=== PATIENT | male | born 1955 | race Caucasian/White ===

== ENCOUNTER 2024-07-30 09:58 | Day surgery (SDC) | payer OTHER ==
[~2024-07-30 09:58] MED LIST: CLIN300 PO; ELIQUIS5 M2 PO; TAMS.4ER PO
[2024-07-30] MEDS ORDERED: Ertapenem Sodium 1,000 MG in NS 50 ML IV SCH (10:20)
[2024-07-30 14:17] VITALS: BP 130/82
[2024-07-30] MEDS ORDERED: ERTAPENEM1 G6 IV (14:27)
[2024-07-30] MEDS ORDERED: XARELTO20 MG PO (14:28)
[2024-07-30] MEDS ORDERED: Nicotine Gum4 MG BC (14:28)
[2024-07-30] MEDS ORDERED: ALBU90OI INH (14:29)
[2024-07-30] MEDS ORDERED: Vitamin D2000 UNIT PO (14:29)
[2024-07-30] MEDS ORDERED: DULERA 100 MCG/13 GM INH (14:31)
== END 2024-07-30 14:54 | disposition home or self-care (01) ==
LOC: ATC 09:58
DX: N39.0 Urinary tract infection, site not specified (principal); I10 Essential (primary) hypertension; E78.00 Pure hypercholesterolemia, unspecified; F17.290 Nicotine dependence, other tobacco product, uncomplicated; Z87.442 Personal history of urinary calculi; Z79.01 Long term (current) use of anticoagulants; Z79.899 Other long term (current) drug therapy; Z91.030 Bee allergy status
CPT/HCPCS: 96365; C1751; J1335

== ENCOUNTER 2024-07-31 01:24 | Day surgery (SDC) | payer OTHER ==
[~2024-07-31 01:24] MED LIST changes: +ALBU90OI INH; +DULERA 100 MCG/13 GM INH; +ERTAPENEM1 G6 IV; +Ertapenem Sodium 1,000 MG in NS 50 ML IV SCH; +Nicotine Gum4 MG BC; +Vitamin D2000 UNIT PO; +XARELTO20 MG PO
[2024-07-31 14:32] VITALS: BP 146/92
[2024-08-01] MEDS ORDERED: ATEN50 PO (14:35)
== END 2024-07-31 14:52 | disposition home or self-care (01) ==
LOC: ATC 01:24
DX: N39.0 Urinary tract infection, site not specified (principal); I10 Essential (primary) hypertension; E78.5 Hyperlipidemia, unspecified; Z87.891 Personal history of nicotine dependence; Z79.01 Long term (current) use of anticoagulants; Z79.899 Other long term (current) drug therapy
CPT/HCPCS: 96365; J1335

== ENCOUNTER 2024-08-01 01:15 | Day surgery (SDC) | payer OTHER ==
[2024-08-01] MEDS ORDERED: ATEN50 PO (14:35)
[2024-08-01 14:37] VITALS: BP 157/91
== END 2024-08-01 14:53 | disposition home or self-care (01) ==
LOC: ATC 01:15
DX: N39.0 Urinary tract infection, site not specified (principal); I10 Essential (primary) hypertension; E78.5 Hyperlipidemia, unspecified; Z87.891 Personal history of nicotine dependence; Z79.01 Long term (current) use of anticoagulants; Z79.899 Other long term (current) drug therapy
CPT/HCPCS: 96365; J1335

== ENCOUNTER 2024-08-02 14:10 | Day surgery (SDC) | payer OTHER ==
[~2024-08-02 14:10] MED LIST changes: +ATEN50 PO
[2024-08-02 14:31] VITALS: BP 124/78
== END 2024-08-02 14:49 | disposition home or self-care (01) ==
LOC: ATC 14:10
DX: N39.0 Urinary tract infection, site not specified (principal); E78.00 Pure hypercholesterolemia, unspecified; I10 Essential (primary) hypertension; Z79.899 Other long term (current) drug therapy; Z91.030 Bee allergy status; Z87.891 Personal history of nicotine dependence
CPT/HCPCS: 96365; J1335

== ENCOUNTER 2024-08-03 03:07 | Day surgery (SDC) | payer OTHER ==
[2024-08-03 14:23] VITALS: BP 113/79
== END 2024-08-03 14:40 | disposition home or self-care (01) ==
LOC: ATC 03:07
DX: N39.0 Urinary tract infection, site not specified (principal); I10 Essential (primary) hypertension; E78.5 Hyperlipidemia, unspecified; Z87.891 Personal history of nicotine dependence; Z79.01 Long term (current) use of anticoagulants; Z79.899 Other long term (current) drug therapy
CPT/HCPCS: 96365; J1335

== ENCOUNTER 2024-08-04 03:45 | Day surgery (SDC) | payer OTHER ==
[2024-08-04 14:31] VITALS: BP 119/78
== END 2024-08-04 14:47 | disposition home or self-care (01) ==
LOC: ATC 03:45
DX: N39.0 Urinary tract infection, site not specified (principal); E78.00 Pure hypercholesterolemia, unspecified; I10 Essential (primary) hypertension; Z79.899 Other long term (current) drug therapy; Z91.030 Bee allergy status; Z87.891 Personal history of nicotine dependence
CPT/HCPCS: 96365; J1335

== ENCOUNTER 2024-08-05 14:30 | Day surgery (SDC) | payer OTHER ==
[2024-08-05 14:40] VITALS: BP 126/86
== END 2024-08-05 14:55 | disposition home or self-care (01) ==
LOC: ATC 14:30
DX: N39.0 Urinary tract infection, site not specified (principal); E78.00 Pure hypercholesterolemia, unspecified; I10 Essential (primary) hypertension; Z79.899 Other long term (current) drug therapy
CPT/HCPCS: 96365; J1335

== ENCOUNTER 2024-08-06 00:14 | Day surgery (SDC) | payer OTHER ==
[~2024-08-06 00:14] MED LIST changes: -Ertapenem Sodium 1,000 MG in NS 50 ML IV SCH
[2024-08-06] MEDS ORDERED: Ertapenem Sodium 1,000 MG in NS 50 ML IV SCH (01:00)
[2024-08-06 13:54] VITALS: BP 123/80
== END 2024-08-06 14:21 | disposition home or self-care (01) ==
LOC: ATC 00:14
DX: N39.0 Urinary tract infection, site not specified (principal); E78.00 Pure hypercholesterolemia, unspecified; I10 Essential (primary) hypertension; Z79.899 Other long term (current) drug therapy
CPT/HCPCS: 96365; J1335

== ENCOUNTER 2024-08-07 06:44 | Day surgery (SDC) | payer OTHER ==
[2024-08-06 13:45] VITALS: BP 123/80
[~2024-08-07 06:44] MED LIST changes: +Ertapenem Sodium 1,000 MG in NS 50 ML IV SCH
[2024-08-07 13:33] VITALS: BP 136/78
== END 2024-08-07 13:53 | disposition home or self-care (01) ==
LOC: ATC 06:44
DX: N39.0 Urinary tract infection, site not specified (principal); N20.0 Calculus of kidney; I10 Essential (primary) hypertension; E78.00 Pure hypercholesterolemia, unspecified; F17.290 Nicotine dependence, other tobacco product, uncomplicated; Z79.01 Long term (current) use of anticoagulants; Z79.899 Other long term (current) drug therapy; Z91.030 Bee allergy status
CPT/HCPCS: 96365; J1335

== ENCOUNTER 2024-08-08 13:20 | Day surgery (SDC) | payer OTHER ==
[2024-08-08 13:24] VITALS: BP 120/80
== END 2024-08-08 13:43 | disposition home or self-care (01) ==
LOC: ATC 13:20
DX: N39.0 Urinary tract infection, site not specified (principal); I10 Essential (primary) hypertension; E78.5 Hyperlipidemia, unspecified; Z87.891 Personal history of nicotine dependence; Z79.01 Long term (current) use of anticoagulants; Z79.899 Other long term (current) drug therapy
CPT/HCPCS: 96365; J1335

== ENCOUNTER 2024-08-09 13:27 | Day surgery (SDC) | payer OTHER ==
[2024-08-09 13:50] VITALS: BP 125/78
== END 2024-08-09 14:11 | disposition home or self-care (01) ==
LOC: ATC 13:27
DX: N39.0 Urinary tract infection, site not specified (principal); I10 Essential (primary) hypertension; E78.5 Hyperlipidemia, unspecified; Z87.891 Personal history of nicotine dependence; Z79.01 Long term (current) use of anticoagulants; Z79.899 Other long term (current) drug therapy
CPT/HCPCS: 96365; J1335

== ENCOUNTER 2024-08-10 03:51 | Day surgery (SDC) | payer OTHER ==
[2024-08-10 13:23] VITALS: BP 127/82
== END 2024-08-10 13:42 | disposition home or self-care (01) ==
LOC: ATC 03:51
DX: N39.0 Urinary tract infection, site not specified (principal); E78.5 Hyperlipidemia, unspecified; E78.00 Pure hypercholesterolemia, unspecified; I10 Essential (primary) hypertension; Z79.899 Other long term (current) drug therapy; Z91.030 Bee allergy status
CPT/HCPCS: 96365; J1335

== ENCOUNTER 2024-08-11 01:06 | Day surgery (SDC) | payer OTHER ==
[2024-08-11 13:38] VITALS: BP 110/77
== END 2024-08-11 13:58 | disposition home or self-care (01) ==
LOC: ATC 01:06
DX: N39.0 Urinary tract infection, site not specified (principal); I10 Essential (primary) hypertension; E78.00 Pure hypercholesterolemia, unspecified; F17.290 Nicotine dependence, other tobacco product, uncomplicated; Z87.442 Personal history of urinary calculi; Z79.01 Long term (current) use of anticoagulants; Z79.899 Other long term (current) drug therapy; Z91.030 Bee allergy status
CPT/HCPCS: 96365; J1335

== ENCOUNTER 2024-08-12 05:26 | Day surgery (SDC) | payer OTHER ==
[2024-08-12 13:35] VITALS: BP 146/80
== END 2024-08-12 13:54 | disposition home or self-care (01) ==
LOC: ATC 05:26
DX: N39.0 Urinary tract infection, site not specified (principal); I10 Essential (primary) hypertension; E78.00 Pure hypercholesterolemia, unspecified; Z79.01 Long term (current) use of anticoagulants; Z79.899 Other long term (current) drug therapy; Z87.891 Personal history of nicotine dependence
CPT/HCPCS: 96365; J1335

== ENCOUNTER 2025-04-18 22:13 | Emergency (ER) | payer OTHER ==
[~2025-04-18] VITALS: Ht 182.9 cm; Wt 83.9 kg
[~2025-04-18 22:13] MED LIST changes: -Ertapenem Sodium 1,000 MG in NS 50 ML IV SCH
[2025-04-18 23:01] LABS: BASOPHILS ABSOLUTE AUTO 0.05 K/mm3 (0.00-0.23); BASOPHILS PERCENT AUTO 1 % (0-2); EOSINOPHILS ABSOLUTE AUTO 0.07 K/mm3 (0.00-0.68); EOSINOPHILS PERCENT AUTO 1 % (0-6); Hematocrit 44.8 % (37.0-53.0); Hemoglobin 15.0 g/dL (13.5-17.5); IMMATURE GRAN ABSOLUTE AUTO 0.04 K/mm3 (0.00-0.10); IMMATURE GRAN PERCENT AUTO 0 % (0-1); LYMPHOCYTES ABSOLUTE AUTO 1.02 K/mm3 (0.84-5.20); LYMPHOCYTES PERCENT AUTO 10 % (21-46); MONOCYTES ABSOLUTE AUTO 1.20 K/mm3 (0.16-1.47); MONOCYTES PERCENT AUTO 12 % (4-13); Mean Corpuscular HGB Conc 33.5 g/dL (31.5-36.5); Mean Corpuscular Volume 92 fL (80-100); NEUTROPHILS ABSOLUTE AUTO 7.70 K/mm3 (1.96-9.15); NEUTROPHILS PERCENT AUTO 76 % (41-73); NRBC ABSOLUTE 0.00 K/mm3 (0.00-0.02); NRBC Auto 0.0 /100 WBC (0.0-0.2); Platelet Count 167 K/mm3 (150-400); RDW Coefficient Variation 12.2 % (11.7-14.2); RDW Standard Deviation 41.8 fL (35.1-46.3)
[2025-04-18 23:28] LABS: Alanine Aminotransfer (ALT/SGP 27.0 U/L (12-78); Albumin, Blood 3.8 g/dL (3.4-5.0); Albumin/Globulin Ratio 1.1 (0.8-1.8); Anion Gap 9.0 mmol/L (3-11); Aspartate Aminotrans (AST/SGOT 17.0 U/L (12-37); Bilirubin, Total 1.9 mg/dL (0.1-1.0); Blood Urea Nitrogen 17.0 mg/dL (8-24); CO2, Blood 27.0 mmol/L (21-32); Calcium, Blood 8.6 mg/dL (8.5-10.1); Chloride, Blood 99.0 mmol/L (98-108); Creatinine, Blood 1.21 mg/dL (0.60-1.20); Globulin, Blood 3.4 g/dL (2.2-4.0); Glucose, Blood 108.0 mg/dL (70-99); Potassium, Blood 4.1 mmol/L (3.5-5.5); Sodium, Blood 131.0 mmol/L (136-145); Total Protein, Blood 7.2 g/dL (6.4-8.2)
[2025-04-19 00:32] LABS: Source, Urine Clean Catch
[2025-04-19 00:34] LABS: Bilirubin, Urine Neg (Neg); Glucose Qualitative, Urine Neg (Neg); Ketones, Urine 1+ (Neg); Leukocyte Esterase, Urine 3+ (Neg); Protein, Urine 3+ (Neg); Specific Gravity, Urine 1.010 (1.003-1.022); Urobilinogen, Urine 2+ (Normal)
[2025-04-19 00:45] LABS: Color, Urine Yellow (P-Yellow)
[2025-04-19 00:46] LABS: White Blood Cells, Urine TNTC /hpf (0-5)
[2025-04-19] MEDS ORDERED: CefTRIAXone Sodium 1,000 MG in NS 100 ML IV ONE (00:50)
[2025-04-19] MEDS ORDERED: CEFP200 PO (02:06)
[2025-04-19] MEDS ORDERED: ONDA4ODT MM (02:13)
[2025-04-19 03:30] VITALS: BP 119/83
[2025-04-19 03:52] LABS: Influenza A, PCR NEGATIVE (NEGATIVE); Influenza B, PCR NEGATIVE (NEGATIVE); Resp Syncytial Virus, PCR NEGATIVE (NEGATIVE); SARS-Cov-2 (COVID-19) PCR, MMC NEGATIVE (NEGATIVE)
[2025-04-23] MEDS ORDERED: MACRODANTIN100 M1 PO (15:37)
== END 2025-04-19 03:54 | disposition home or self-care (01) ==
LOC: ER 22:13
PROVIDERS: Emergency Medicine; Student in an Organized Health Care Education/Training Program
DX: N39.0 Urinary tract infection, site not specified (principal); E87.1 Hypo-osmolality and hyponatremia; Z79.01 Long term (current) use of anticoagulants; R79.89 Other specified abnormal findings of blood chemistry; Z91.030 Bee allergy status; Z79.899 Other long term (current) drug therapy; F17.220 Nicotine dependence, chewing tobacco, uncomplicated; Z87.442 Personal history of urinary calculi
CPT/HCPCS: 74177; 80053; 81001; 83605; 85025; 87040; 87077; 87086; 87186; 87637; 96365-59; 99284; J0696; Q9967